=== PATIENT | male | born 1980 | race Caucasian/White ===

== ENCOUNTER 2024-05-18 10:26 | Outpatient (AMB) | payer BC, SELFPAY ==
--- NOTE | 2024-05-18 10:09 | MHC.PC.OV ---
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 Intake Note: New patient visit Case Planner Required: No Allergies No Known Allergies [No Known Allergies*] Allergy (Unverified 01/12/20 17:38) Medication List - Last Reconciled 05/18/24 by Marti Blood PA-C No Known Home Meds Tobacco use date assessed: 05/18/24 Dental Screening Dental Screen Date: 05/18/24 Did you have a dental visit in the last 12 months?: No Did you have a dental problem in the last 6 months where you did not have access to dental care?: No Was dental information given to patient?: Patient has dentist HPI 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 He has a significant past medical history of colon polyps and IBS. He states that he scheduled this appointment because he has been experiencing musculoskeletal pain primarily located in the left hip/groin region. The onset of symptoms occurred when the patient was engaging in physical activities, particularly basketball, in March 2023. The patient reports that the pain became severe after playing three or four games, leading to significant difficulty with ambulation and stair climbing for two days following the episode. X-rays and a CT scan were performed at the emergency room (ER) with no findings suggestive of hernia or any definitive pathology. The pain is described as tightening and sharp when moving side to side or twisting the hip. The patient reported that the pain does not radiate into the back and is mainly confined to the groin area. The history includes a previous occurrence of neck/back pain due to a pinched nerve which affected the ulnar nerve, causing weakness, which resolved after physical therapy. He also has a history of lumbar disc degeneration diagnosed previously, with the last significant episode occurring at age 36. 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 he is interested in going to physical therapy for this. Health Maintenance - Referred for colonoscopy screening due to history of colon polyps and IBS. - Blood work including a complete blood count (CBC), kidney function, blood sugar, and total protein performed; results were normal in the ER. - CT scan findings included a left renal cyst, noted as benign, with no indication for follow-up.- CT report pulled from [facility]. - Lumbar spine degeneration noted On CT as well, consistent with previous evaluations. - Patient to be referred for physical therapy for the current musculoskeletal issue. - Discussion of lifestyle and diet management related to IBS symptoms. Social History - Employed full-time as a contract negotiation specialist, involving significant physical activity and heavy lifting. - Engages regularly in physical activities such as basketball, hiking, running, and weightlifting. - Reports a healthy diet positively impacts IBS symptoms; dietary transgressions worsen symptoms. - Resides in [place], though not specified in conversation where. - Quit participating in the basketball league due to hip/groin pain. Review of Systems - Musculoskeletal: Reports groin/hip pain affecting primarily the left side, without radiation to the back. - Neurological: Denies any current ulnar nerve symptoms but noted past issues due to nerve compression. Physical Exam General: Well developed, well nourished, in no acute distress. Appears stated age. Cardiac: RRR, no murmurs Lungs: clear, equal breath sounds Abdomen: soft, nontender, no CVA tenderness, slight discomfort noted upon palpation, especially with external rotation of the hips. Extremities: no edema Neuro: alert, oriented x3, mood appropriate, property clerk strength not 100% but improved after physical therapy. Colonoscopy: 2018 for diagnosis of IBS [facility] Medical History (Updated 05/18/24 @ 11:01 by Marti Blood PA-C) Deviated septum Surgical History (Updated 05/18/24 @ 10:38 by Lula Matamoros CMA) History of ankle surgery Hx of tonsillectomy Family History (Updated 05/18/24 @ 10:37 by Lula Matamoros CMA) Paternal Grandmother Hypercholesteremia Paternal Grandfather Hypercholesteremia Diabetes Mother Hypercholesteremia Father Hypercholesteremia Other FH: mental illness Social History (Updated 05/18/24 @ 10:38 by Lula Matamoros CMA) Housing: House Alcohol intake: current Patient Tobacco Use Status: Current someday Tobacco user Tobacco use type: Cigar (Occasionally) Years Smoked: 5 e-Cigarette/Vaping Use: Never Used Second Hand Smoke Exposure: No Use of substances other than those prescribed or required for medical reasons: Yes Substance Use Type: Marijuana service: Yes Current occupational status: employed Current occupation: Plumbing Current occupational exposures/hazards: Yes Cognitive needs: No Hearing needs: No Vision needs: Yes (glasses) Physical exam (Primary Care) Vital Signs: Last Vital Signs Pulse 70 05/18/24 10:40 BP 114/72 05/18/24 10:40 Pulse Ox 97 05/18/24 10:40 Oxygen Delivery Method Room Air 05/18/24 10:40 Tobacco/Smoking Status: Tobacco use Status Tobacco use date assessed 05/18/24 05/18/24 10:39 Patient Tobacco Use Status Current someday Tobacco 05/18/24 10:39 Tobacco use type Cigar (Occasionally) 05/18/24 10:39 e-Cigarette/Vaping Use Never Used 05/18/24 10:39 Coding Level of Care Code New Pt Level 3 (98605) Complex EM visit Add On G2211 Diagnoses Colon polyps K63.5 IBS (irritable bowel syndrome) K58.9 Bilateral groin pain R10.31; R10.32 Assessment & Plan Assessment & Plan (1) Colon polyps: Code(s): K63.5 - Polyp of colon Category: Medical Plan: Referral for a colonoscopy (2) IBS (irritable bowel syndrome): Code(s): K58.9 - Irritable bowel syndrome, unspecified Category: Medical Plan: Stable (3) Bilateral groin pain: Code(s): R10.31 - Right lower quadrant pain; R10.32 - Left lower quadrant pain Category: Medical Plan: Referral to physical therapy. He will let me know if he does not improve or if anything worsens or changes. We did discuss doing additional imaging if needed. Encouraged short term follow up. Orders: Orders PT Evaluation and Treatment Today R10.31 - Right lower quadrant pain, R10.32 - Left lower quadrant pain Complete Blood Count Auto Diff Today K58.9 - Irritable bowel syndrome, unspecified, K63.5 - Polyp of colon, R10.31 - Right lower quadrant pain, R10.32 - Left lower quadrant pain Lipid Panel Today K58.9 - Irritable bowel syndrome, unspecified, K63.5 - Polyp of colon, R10.31 - Right lower quadrant pain, R10.32 - Left lower quadrant pain TSH reflex Free T4 Today K58.9 - Irritable bowel syndrome, unspecified, K63.5 - Polyp of colon, R10.31 - Right lower quadrant pain, R10.32 - Left lower quadrant pain Comprehensive [place]. Panel Fast Today K58.9 - Irritable bowel syndrome, unspecified, K63.5 - Polyp of colon, R10.31 - Right lower quadrant pain, R10.32 - Left lower quadrant pain Referrals Gastroenterology Referral K58.9 - Irritable bowel syndrome, unspecified, K63.5 - Polyp of colon
[2024-05-18 10:40] VITALS: BP 114/72; PULSE 70; O2SAT 97
== END 2024-05-18 11:04 | disposition home or self-care (01) ==
PROVIDERS: PCP Physician Assistant; Visit Provider Physician Assistant
DX: K63.5 Polyp of colon (principal); K58.9 Irritable bowel syndrome, unspecified; R10.31 Right lower quadrant pain; R10.32 Left lower quadrant pain

== ENCOUNTER 2024-06-29 08:05 | Outpatient (AMB) | payer BC, SELFPAY ==
--- NOTE | 2024-06-29 08:13 | A.OFFPC_ITS ---
Vital Signs 06/29/24 08:17 Height 5 ft 10 in Weight 207 lb BMI 29.7 BP 100/68 Blood Pressure Location Lt brachial Position Sitting Respiration 14 Pulse 76 Pulse Source Pulse Oximeter Pulse Oximetry (%) 99 Oxygen Delivery Method Room Air Intake Visit Reasons: F/U lower abdominal pain Intake Note: Follow up lower abdominal pain. Getting labs done today Supervisor Fish Bait Processing Required: No Allergies No Known Allergies [No Known Allergies*] Allergy (Verified 06/29/24 08:14) Medication List - Last Reconciled 06/29/24 by Marti Blood PA-C No Known Home Meds Tobacco use date assessed: 06/29/24 Dental Screening Dental Screen Date: 05/18/24 HPI F/U lower abdominal pain HPI Details The patient is a 44-year-old male presenting today for a follow up regarding bilateral groin pain/lower abdominal pain. He has a significant past medical history of colon polyps and IBS. He had a CT of the abdomen and pelvis along with the x-ray of the hip and pelvis which were negative. At our last visit I did refer him to physical therapy as we believed it was possibly musculoskeletal in etiology. The onset of symptoms occurred when the patient was engaging in physical activities, particularly basketball, in March 2023. The patient reports that the pain became severe after playing three or four games, leading to significant difficulty with ambulation and stair climbing for two days following the episode. X-rays and a CT scan were performed at the emergency room (ER) with no findings suggestive of hernia or any definitive pathology. The pain is described as tightening and sharp when moving side to side or twisting the hip. The patient reported that the pain does not radiate into the back and is mainly confined to the groin area. He went to physical therapy it it made no improvement. The pain is still worse with some movements but also with pushing on the lower abdomen. He also has a history of lumbar disc degeneration diagnosed previously, with the last significant episode occurring at age 36. He states that the physical therapist recommended discontinuation of treatment as it was not improving at all and if anything slightly worsening. He has not noticed any weight loss, nausea, vomiting, diarrhea, blood in the stool. No urinary symptoms. No testicular pain or swelling. He did forget to get labs. [facility] Medical History (Updated 05/18/24 @ 11:01 by Marti Blood PA-C) Deviated septum Surgical History History of ankle surgery Hx of tonsillectomy Family History Paternal Grandmother Hypercholesteremia Paternal Grandfather Hypercholesteremia Diabetes Mother Hypercholesteremia Father Hypercholesteremia Other FH: mental illness Social History (Updated 06/29/24 @ 08:21 by Lula Matamoros CMA) Housing: House Alcohol intake: current Patient Tobacco Use Status: Current someday Tobacco user Tobacco use type: Cigar (Occasionally) Years Smoked: 5 e-Cigarette/Vaping Use: Never Used Second Hand Smoke Exposure: No Substance Use Type: Marijuana service: Yes Current occupational status: employed Current occupation: Plumbing Current occupational exposures/hazards: Yes Cognitive needs: No Hearing needs: No Vision needs: Yes (glasses) Questionnaire Thrive Questionnaire Date Thrive assessed: 05/18/24 I am a: Patient What is your living situation today?: I have a steady place to live Within the past 12 months, did the food you bought not last and you didn't have the money to get more?: Never true Within the past 12 months, did you worry whether your food would run out before you got money to buy more?: Never true Do you have trouble paying for medicines?: No Do you have trouble getting transportation to medical appointments?: No Do you have trouble paying your heating and electricity bill?: No Do you have trouble taking care of your child, family member or friend?: No Do you have trouble with day-to-day activities such as bathing, preparing meals, shopping, managing finances, etc.?: No Are you currently unemployed and looking for a job?: No Are you interested in more education?: No Please select the resources that you would like help with: None Currently or been in a relationship where the following occur: No concerns reported THRIVE Score: 0 Physical exam (Primary Care) Vital Signs: Last Vital Signs Pulse 76 06/29/24 08:17 Resp 14 06/29/24 08:17 BP 100/68 06/29/24 08:17 Pulse Ox 99 06/29/24 08:17 Oxygen Delivery Method Room Air 06/29/24 08:17 BMI result Body Mass Index 29.7 Tobacco/Smoking Status: Tobacco use Status Tobacco use date assessed 06/29/24 06/29/24 08:21 Patient Tobacco Use Status Current someday Tobacco 06/29/24 08:21 Tobacco use type Cigar (Occasionally) 06/29/24 08:21 e-Cigarette/Vaping Use Never Used 06/29/24 08:21 Thrive Assessment: Date of Thrive Assessment Date Thrive assessed 05/18/24 06/29/24 08:16 Currently or been in a relationship where the following occur: No concerns reported Const Orientation/consciousness: patient oriented x3 HENMT Ears: hearing grossly normal bilaterally Neck Thyroid: Thyroid normal Lymphatic: no lymphadenopathy noted Resp Auscultation: clear to auscultation bilaterally Cardio Rate: regular rate Rhythm: regular rhythm Heart sounds: S1 normal heart sound present and S2 normal heart sound present GI Inspection: Yes normal to inspection Palpation (GI): Soft to palpation, Tenderness to palpation present (GI) in the LLQ and in the RLQ, no guarding and No Rebound tenderness present Auscultation: normoactive bowel sounds Rectal Exam - Male: Yes deferred General: Yes no CVA tenderness Back/Spine/Pelvis Back: no CVA tenderness Thoracic/Lumbar Spine: thoracic and lumbar spine normal to inspection, thoraco- lumbar ROM normal and straight leg raise negative bilaterally Skin General skin exam: no rashes or lesions noted Neuro General: patient oriented x3, gait normal and no focal motor deficits Coding Level of Care Code Est Pt Level 4 (37978) Complex EM visit Add On G2211 Diagnoses Bilateral groin pain R10.31; R10.32 Lower abdominal pain R10.30 Assessment & Plan Assessment & Plan (1) Bilateral groin pain: Code(s): R10.31 - Right lower quadrant pain; R10.32 - Left lower quadrant pain Category: Medical Plan: Unchanged/slightly worse with physical therapy. PT is unsure that this is related to musculoskeletal etiology. Pelvic MRI ordered. We will follow up pending test results. We did discuss possibilities of referral to ortho an urology for ongoing pelvic pain. We will follow up sooner if anything worsens or changes. (2) Lower abdominal pain: Code(s): R10.30 - Lower abdominal pain, unspecified Category: Medical Plan: As above. Orders: Orders MR pelvis wo/w con Today R10.30 - Lower abdominal pain, unspecified, R10.31 - Right lower quadrant pain, R10.32 - Left lower quadrant pain
[2024-06-29 08:17] VITALS: BP 100/68; PULSE 76; RESP 14; O2SAT 99; BMI 29.7
== END 2024-06-29 10:49 | disposition home or self-care (01) ==
PROVIDERS: PCP Physician Assistant; Visit Provider Physician Assistant
DX: R10.31 Right lower quadrant pain (principal); R10.32 Left lower quadrant pain; R10.30 Lower abdominal pain, unspecified

== ENCOUNTER → 2024-06-29 08:05 | Outpatient (BNVA) | payer BC, SELFPAY | PROVIDERS: PCP Physician Assistant; Visit Provider Physician Assistant ==

== ENCOUNTER 2024-06-29 08:51 | Outpatient (REF) | payer BC, SELFPAY ==
[2024-06-29 11:57] LABS: MANUAL DIFF FLAG NO
[2024-06-29 12:01] LABS: Basophils Percent Auto 0.3 % (0-2); Eosinophils Absolute Auto 0.1 X10*3/uL (0.0-0.4); Eosinophils Percent Auto 1.5 % (0-4); Hematocrit 46.1 % (42.0-52.0); Hemoglobin 15.5 g/dl (14.0-18.0); Imm Gran Abs Auto 0.01 X10*3/uL (0.00-0.03); Imm Gran Pct Auto 0.2 % (0.0-0.4); Lymphocytes Absolute Auto 1.3 X10*3/uL (1.2-4.9); Lymphocytes Percent Auto 19.8 % (20-40); Mean Corpuscular HGB Conc 33.6 g/dl (31.0-36.0); Mean Corpuscular Hemoglobin 29.4 pg (27.0-33.0); Mean Corpuscular Volume 87.5 fL (80.0-98.0); Mean Platelet Volume 10.6 fL (9.4-12.4); Monocytes Absolute Auto 0.4 X10*3/uL (0.1-1.2); Monocytes Percent Auto 6.7 % (2-11); Neutrophils Absolute Auto 4.6 x10*3/uL (2.0-8.3); Neutrophils Percent Auto 71.5 % (45-73); Platelet Count 223 X10*3/uL (160-400); Red Blood Count 5.27 X10*6/uL (4.60-5.80); Red Cell Distribution Width 12.6 % (11.0-16.0); White Blood Count 6.5 X10*3/uL (4.8-10.8)
[2024-06-29 12:49] LABS: Alanine Aminotransferase 43 U/L (0-40); Albumin Level 4.4 g/dL (3.5-5.0); Alkaline Phosphatase 73 U/L (39-117); Anion Gap 9 (12-20); Aspartate Amino Transferase 37 U/L (5-37); Bilirubin Total 0.6 mg/dL (0.0-1.0); Blood Urea Nitrogen 24 mg/dL (9-16); Calcium 9.5 mg/dL (8.4-10.2); Carbon Dioxide 30 mmol/L (22-29); Chloride 105 mmol/L (96-108); Cholesterol 193 mg/dL (<200); Estimated Glomerular Filt Rate > 60; Glucose Fasting 109 mg/dL (60-99); HDL Cholesterol 56 mg/dL (>40); LDL Cholesterol Calculated 126 mg/dL (<100); Potassium 4.4 mmol/L (3.3-5.1); Sodium 140 mmol/L (135-145); Total Protein 7.6 g/dL (6.5-8.0); Triglycerides 55 mg/dL (<150)
[2024-06-30 16:50] LABS: Estimated Average Glucose 105 mg/dL; Hemoglobin A1C 138.7383 umol/L; Hemoglobin A1c % 5.3 % (<6.0); Total Hemoglobin (HGBA1C) 4006.1809 umol/L
== END 2024-06-29 08:52 | disposition home or self-care (01) ==
LOC: HO.WFDLDS 08:51
PROVIDERS: Visit Provider Physician Assistant
DX: R10.31 Right lower quadrant pain (principal); R10.32 Left lower quadrant pain; K58.9 Irritable bowel syndrome, unspecified; K63.5 Polyp of colon; R73.01 Impaired fasting glucose; R79.89 Other specified abnormal findings of blood chemistry
CPT/HCPCS: 36415; 80053; 80061; 83036; 84443; 85025

== ENCOUNTER 2024-07-07 11:47 | Outpatient (REF) | payer BC, SELFPAY ==
--- OUTSIDE RECORDS SUMMARY | 2024-07-07 15:12 | XMS_ITS ---
Author Name [facility] Organization Unknown Care Team Organization Name Specialty Phone Email Start Date End [facility] NO PCP Primary Care 05/22/2023
== END 2024-07-07 11:48 | disposition home or self-care (01) ==
LOC: CF 11:47
DX: Z13.89 Encounter for screening for other disorder (principal)

== ENCOUNTER 2024-07-11 08:04 | Outpatient (REF) | payer BC, SELFPAY ==
[2024-07-11 13:05] LABS: Alanine Aminotransferase 41 U/L (0-40); Albumin Level 4.2 g/dL (3.5-5.0); Alkaline Phosphatase 69 U/L (39-117); Aspartate Amino Transferase 44 U/L (5-37); Bilirubin Direct 0.1 mg/dL (0.0-0.5); Bilirubin Total 0.3 mg/dL (0.0-1.0); Total Protein 7.2 g/dL (6.5-8.0)
== END 2024-07-11 08:05 | disposition home or self-care (01) ==
LOC: HO.WFDLDS 08:04
PROVIDERS: Visit Provider Physician Assistant
DX: R79.89 Other specified abnormal findings of blood chemistry (principal)
CPT/HCPCS: 36415; 80076

== ENCOUNTER → 2024-07-16 18:14 | Outpatient (BNV) | payer BC, SELFPAY | PROVIDERS: PCP Physician Assistant; Visit Provider Radiology Diagnostic Radiology | DX: D75.89 Other specified diseases of blood and blood-forming organs (principal) | CPT/HCPCS: 72195 ==

== ENCOUNTER 2024-07-16 18:15 | Outpatient (REF) | payer BC, SELFPAY ==
--- NOTE | ~2024-07-16 | MR_ITS ---
EXAMINATION: MR PELVIS WITHOUT IV CONTRAST HISTORY: R10.31 - Right lower quadrant pain. TECHNIQUE: Axial T1 and fat-suppressed T2, coronal T1 and STIR, and sagittal fat-suppressed T2-weighted MR images of the pelvis were obtained. Coronal oblique STIR images of the sacrum were also obtained. COMPARISON: Correlation is made with an outside CT of the pelvis dated 05/02/2024. FINDINGS: There is symmetric bone marrow edema involving the pubic symphysis. There is mild muscular edema of the bilateral obturator externus muscles consistent with strain versus partial tear. Remaining bone marrow signal intensity is normal. There is no hip joint effusion or evidence of degenerative change. The sacroiliac joints are maintained. The remaining muscles demonstrate normal signal intensity. There is no ascites or pelvic lymphadenopathy. The urinary bladder is collapsed. MR/MR pelvis wo con IMPRESSION: Symmetric bone marrow edema involving the pubic symphysis, with mild muscular edema of the bilateral obturator externus muscles, consistent with strain versus partial tears. Electronically signed by: Michael Lindsay MD 07/18/2024 08:45 AM EDT
== END 2024-07-16 18:16 | disposition home or self-care (01) ==
LOC: HO.MRI 18:15
PROVIDERS: PCP Physician Assistant; Visit Provider Physician Assistant
DX: R10.32 Left lower quadrant pain (principal); R10.31 Right lower quadrant pain
CPT/HCPCS: 72195

== ENCOUNTER 2024-09-26 08:38 | Outpatient (REF) | payer BC, SELFPAY | END 2024-09-26 08:39 | disposition home or self-care (01) | LOC: HO.HOSX 08:38 | PROVIDERS: Visit Provider Physician Assistant | DX: Z13.89 Encounter for screening for other disorder (principal) ==